=== PATIENT | male | born 1970 | race Caucasian/White ===

== ENCOUNTER 2024-05-21 10:29 | Day surgery (SDC) | payer OTHER ==
[2024-05-21] MEDS ORDERED: propofoL IV ONE (12:14)
--- NOTE | 2024-05-21 13:18 | XRAY ---
Indication: Left C4-C6 MBB Intraoperative fluoroscopy provided for 36 seconds. 2 digital spot images submitted for interpretation demonstrates posterior needle tips rehashing over expected left C4-C6 nerve roots. Correlate with intraoperative findings/report. Incidental C6-C7 fusion hardware.
--- NOTE | 2024-05-21 13:30 | XRAY ---
36 seconds of fluoroscopy was used in surgery for a left C4-C6 MBB.
== END 2024-05-21 12:47 | disposition home or self-care (01) ==
LOC: SDC-PAIN 10:29
PROVIDERS: ATTEND Psychiatry & Neurology Pain Medicine
DX: M47.812 Spondylosis without myelopathy or radiculopathy, cervical region (principal)
CPT/HCPCS: 64490; 64491; 72040; 77002; J2704

== ENCOUNTER 2024-06-18 10:17 | Day surgery (SDC) | payer OTHER ==
[2024-06-18] MEDS ORDERED: Lactated Ringers 500 ML IV ONE (10:46)
[2024-06-18] MEDS ORDERED: propofoL IV ONE ×2 (12:05→12:16)
--- NOTE | 2024-06-18 13:11 | XRAY ---
41 seconds of fluoroscopy was used in surgery for a left C4-C6 MBB.
--- NOTE | 2024-06-18 13:19 | XRAY ---
Indication: Left C4-C6 MBB. Intraoperative fluoroscopy provided for 41 seconds. 4 digital spot images submitted for interpretation demonstrates posterior needle tips projecting over expected left C4-C6 nerve roots. Correlate with intraoperative findings/report. Incidental C6-C7 fusion hardware.
== END 2024-06-18 12:41 | disposition home or self-care (01) ==
LOC: SDC-PAIN 10:17
PROVIDERS: ATTEND Psychiatry & Neurology Pain Medicine
DX: M47.812 Spondylosis without myelopathy or radiculopathy, cervical region (principal)
CPT/HCPCS: 72040; 77002; J2704

== ENCOUNTER 2024-07-16 13:18 | Day surgery (SDC) | payer OTHER ==
[2024-07-16] MEDS ORDERED: dexAMETHasone sodium phosphate IJ ONE (13:19)
[2024-07-16] MEDS ORDERED: LIDOCAINE HCL 1% AMPUL 5 ML IJ ONE (13:19)
[2024-07-16] MEDS ORDERED: BUPIVACAINE 0.5% VIAL IJ ONE (13:19)
[2024-07-16] MEDS ORDERED: Lactated Ringers 500 ML IV ONE (14:34)
[2024-07-16] MEDS ORDERED: propofoL IV ONE ×2 (16:26→16:36)
--- NOTE | 2024-07-16 19:07 | XRAY ---
Indication: Left C4-C6 RFA. Intraoperative fluoroscopy provided for 36 seconds. 4 digital spot image submitted for interpretation demonstrates posterior needle tips projecting over expected left C4-C6 nerve roots. Correlate with intraoperative findings/report.
--- NOTE | 2024-07-17 09:44 | XRAY ---
36 seconds of fluoroscopy was used in surgery for a left C4-C6 RFA.
== END 2024-07-16 17:07 | disposition home or self-care (01) ==
LOC: SDC-PAIN 13:18
PROVIDERS: ATTEND Psychiatry & Neurology Pain Medicine
DX: M47.812 Spondylosis without myelopathy or radiculopathy, cervical region (principal)
CPT/HCPCS: 64633; 64634; 72040; 77002; J1100; J2704

== ENCOUNTER 2024-08-27 11:42 | Day surgery (SDC) | payer OTHER ==
[2024-08-27] MEDS ORDERED: dexAMETHasone sodium phosphate IJ ONE (11:43)
[2024-08-27] MEDS ORDERED: LIDOCAINE HCL 2% 100 MG/5 ML IJ ONE (11:43)
[2024-08-27] MEDS ORDERED: Lactated Ringers 500 ML IV ONE (12:52)
[2024-08-27] MEDS ORDERED: propofoL IV ONE ×2 (14:19→14:32)
--- NOTE | 2024-08-27 16:31 | XRAY ---
Indication: Right C2-C4 MBB. Intraoperative fluoroscopy provided for 27 seconds. 4 digital spot image submitted for interpretation demonstrates posterior needle tips projecting over expected right C2-C4 nerve roots. Correlate with intraoperative findings/report. Incidental incompletely visualized lower cervical fusion hardware.
--- NOTE | 2024-08-27 16:46 | XRAY ---
27 seconds of fluoroscopy was used in surgery for a right C2-C4 MBB.
== END 2024-08-27 15:00 | disposition home or self-care (01) ==
LOC: SDC-PAIN 11:42
PROVIDERS: ATTEND Psychiatry & Neurology Pain Medicine
DX: M47.812 Spondylosis without myelopathy or radiculopathy, cervical region (principal)
CPT/HCPCS: 64490; 64491; 72040; J1100; J2704

== ENCOUNTER 2024-09-10 12:04 | Day surgery (SDC) | payer OTHER ==
[2024-09-10] MEDS ORDERED: BUPIVACAINE 0.5% VIAL IJ ONE (12:05)
[2024-09-10] MEDS ORDERED: dexAMETHasone sodium phosphate IJ ONE (12:05)
[2024-09-10] MEDS ORDERED: Lactated Ringers IV ONE (12:05)
[2024-09-10] MEDS ORDERED: propofoL IV ONE (14:57)
--- NOTE | 2024-09-10 16:42 | XRAY ---
Indication: Right C2-C4 MBB. Intraoperative fluoroscopy provided for 23 seconds. 3 digital spot images submitted for interpretation demonstrates posterior needle tips projecting over expected right C2-C4 nerve roots. Correlate with intraoperative findings/report.
--- NOTE | 2024-09-10 17:20 | XRAY ---
23 seconds of fluoroscopy was used in surgery for a right C2-C4 MBB.
== END 2024-09-10 15:27 | disposition home or self-care (01) ==
LOC: SDC-PAIN 12:04
PROVIDERS: ATTEND Psychiatry & Neurology Pain Medicine
DX: M47.812 Spondylosis without myelopathy or radiculopathy, cervical region (principal)
CPT/HCPCS: 64490; 64491; 72040; J1100; J2704